=== PATIENT | female | born 1960 | race Caucasian/White ===

== ENCOUNTER 2016-11-23 17:06 | Emergency (ER) | payer MEDICARE ==
--- NOTE | ~2016-11-23 | CT71 ---
[facility] A Service [facility] RADIOLOGY TEXT RESULTS PATIENT: BILL ARELLANO LOCATION: SED : 64 UNIT #: [id number] AGE: [address]: LUISA EVANS SEX: F ORDER DR: [id number] [place] [id number] E MR#: [id number] Acc #: [id number] NAME: BILL ARELLANO : 1960 SEX: F STUDY DATE/TIME: 11/23/2016 16:48 UNIT: SED ROOM: STUDY DESCRIPTION: CT Head Wo Contrast Attending Physician: Luisa Evans Ordering Physician: Cherelle Servin Primary Care Physician: Primary Care Physician No MEDICAL IMAGING REPORT This report is preliminary unless electronic signature is present. EXAM Head CT without contrast HISTORY Migraine headache, onset earlier today. TECHNIQUE/COMPARISON Axial images were obtained without contrast and compared with 09/08/2015. This CT exam was performed with one or more of the following radiation dose reduction techniques: automatic exposure control, adjustment of mA and/or kV according to patient size, and iterative reconstruction. FINDINGS Ventricular size and configuration are normal. There is no evidence of acute infarct or hemorrhage. There are no extraaxial fluid collections. No mass lesion or mass effect is seen. There are no skull fractures. IMPRESSION Normal noncontrast head CT. Dictated by... Mickey Willis M.D. THIS IS AN ELECTRONICALLY VERIFIED REPORT Mickey Willis M.D. at 11/25/2016 11:02 AM RLF/to TD: 11/24/2016 11:20 JOB #: [id number] [facility] A Service [facility] RADIOLOGY TEXT RESULTS PATIENT: BILL ARELLANO LOCATION: SED : 64 UNIT #: [id number] AGE: [address]: LUISA EVANS SEX: F ORDER DR: MEDICAL IMAGING REPORT Page 1 of 1
--- NOTE | ~2016-11-23 | CT17 ---
[facility] A Service [facility] RADIOLOGY TEXT RESULTS PATIENT: BILL ARELLANO LOCATION: SED : 64 UNIT #: [id number] AGE: [address]: LUISA BARR SEX: F ORDER DR: [id number] [place] [id number] E MR#: [id number] Acc #: [id number] NAME: BILL ARELLANO : 1960 SEX: F STUDY DATE/TIME: 11/23/2016 17:52 UNIT: SED ROOM: STUDY DESCRIPTION: CT Angio Head Attending Physician: Luisa Barr Ordering Physician: Physician Non-Staff Primary Care Physician: Primary Care Physician No MEDICAL IMAGING REPORT This report is preliminary unless electronic signature is present. EXAM CT scan head and neck with contrast with carotid CT angiography HISTORY Headache over the past 16 hours. TECHNIQUE Thin section axial imaging was obtained from the mid mediastinum to the top of head with contrast. 100 mL of Isovue was used. CT angiography was performed with thick sliding MIPs, curved planar reformats and 3-D volumetric imaging with surface shaded and volume shaded display. This CT exam was performed with one or more of the following radiation dose reduction techniques: automatic exposure control, adjustment of mA and/or kV according to patient size, and iterative reconstruction. FINDINGS Extravascular structures are unremarkable. The CT angiographic images show moderate plaque at the great vessel origins without significant great vessel origin stenosis. In the posterior circulation both vertebral arteries are large and approximately the same size and the basilar artery is smooth and widely patent. In the carotid circulation there is mild calcified plaque in the right common carotid artery and at both carotid bifurcations. There is no significant stenosis by NASCET criteria on either side. There is minimal calcified plaque through the carotid siphons without stenosis. In the intracranial circulation there is no evidence of aneurysm, vascular malformation or major branch vessel occlusion. [facility] A Service of [facility] RADIOLOGY TEXT RESULTS PATIENT: BILL ARELLANO LOCATION: SED : 64 UNIT #: [id number] AGE: [address]: LUISA BARR SEX: F ORDER DR: IMPRESSION There is some mild calcified plaque at both carotid bifurcations without significant stenosis by NASCET criteria. There is moderate plaque at great vessel origins without significant great vessel origin stenosis. No acute findings. No evidence of aneurysm or occlusive disease intracranially. Dictated by... Mickey Willis M.D. THIS IS AN ELECTRONICALLY VERIFIED REPORT Mickey Willis M.D. at 11/25/2016 11:02 AM GARRY/feliciano TD: 11/24/2016 11:12 JOB #: [id number] MEDICAL IMAGING REPORT Page 1 of 1
--- NOTE | ~2016-11-23 | CT23 ---
[facility] A Service of [facility] RADIOLOGY TEXT RESULTS PATIENT: BILL ARELLANO LOCATION: SED : 64 UNIT #: [id number] AGE: [address]: LUISA BARR SEX: F ORDER DR: [id number] [place] [id number] E MR#: [id number] Acc #: [id number] NAME: BILL ARELLANO : 1960 SEX: F STUDY DATE/TIME: 11/24/2016 17:52 UNIT: SED ROOM: STUDY DESCRIPTION: CT Angio Neck Attending Physician: Luisa Barr Ordering Physician: Physician Non-Staff Primary Care Physician: Primary Care Physician No [facility] EXAM CTA Neck. FINDINGS Result text under order number [id number]. Please see this order for result text. Dictated byNavarik Name: [id number] Mikey Richter TD: 11/24/2016 11:19 JOB #: [id number] [facility] MEDICAL IMAGING REPORT
[~2016-11-23 17:06] MED LIST: ADVAIR 250-501 EACH IH; ALBUTEROL NEBULIZER INH; ALBUTEROL0.83 MG/ML IH; ALBUTEROL17 GM INH; AMBIEN CR PO; BENZONATATE PO; CELEXA PO; CERTAGEN PO; COMBIVENT U/D3 M1 NEB; COMBIVENT U/D3 M4 NEB; DOXYCYCLINE HY100 M1 PO; HYDROCODON-ACE1 EAC5 PO; KCL PO; KLONOPIN0.5 M2; LEVAQUIN PO; LORTAB 10-3251 EACH PO; MEDROL PO; MELATONIN10 M1 PO; NORVASC10 MG PO; PHENERGAN25 M1 PO; POTASSIUM99 M1 PO; PREDNISONE PO; PREDNISONE10 MG PO; PROAIR HFA8.5 GM INH; SOMA PO; SPIRIVA18 MCG; SYMBICORT INH; VICODIN 5/500 T1 TAB PO; VITAMIN B12-FO1 EACH PO; ZITHROMAX PO; ZITHROMAX500 MG PO; ZOFRAN PO
[2016-11-23 17:18] LABS: BASOPHIL# 0.1 X10e3 (0-0.3); BASOPHIL% 1.4 % (0-2.5); EOSINOPHIL# 0.2 X10e3 (0-0.7); EOSINOPHIL% 2.6 % (0.0-7.0); HEMATOCRIT 39.5 % (35.0-45.0); HEMOGLOBIN 12.8 gm/dL (12.0-16.0); LYMPHOCYTE# 1.8 X10e3 (1.0-3.5); LYMPHOCYTE% 22.6 % (17.0-45.0); MEAN CELL VOLUME 101.3 FL (83-96); MEAN CORPUSCULAR HEMOGLOBIN 32.7 PG (28-34); MEAN CORPUSCULAR HGB CONC 32.3 g/dL (30-36); MEAN PLATELET VOLUME 7.3 FL (6.5-11.5); MONOCYTE# 0.7 X10e3 (0-1.0); MONOCYTE% 9.2 % (3.0-12.0); NEUTROPHIL# 5.2 X10e3 (1.5-7.1); NEUTROPHIL% 64.2 % (40-75); PLATELET COUNT 518 X10e3 (140-420); RED CELL DISTRIBUTION WIDTH 16.6 % (11.0-15.5); WHITE BLOOD COUNT 8.1 X10e3 (4.0-10.5)
[2016-11-23 17:25] LABS: DIFF IND NO
[2016-11-23 17:37] LABS: ALKALINE PHOSPHATASE 87 U/L (32-92); ALT (SGPT) 13 U/L (10-40); AST (SGOT) 20 U/L (10-42); BILIRUBIN,TOTAL 0.4 mg/dL (0.2-2.0); BLOOD UREA NITROGEN 11 mg/dL (9-23); CALCIUM SERUM 9.2 mg/dL (8.4-10.2); CARBON DIOXIDE 33 mmol/L (22-31); CHLORIDE 93 mmol/L (100-111); CREATININE SERUM 0.5 mg/dL (0.6-1.4); GLOM FILT RATE Estimated ABOVE60 mL/min (>60); GLUCOSE FASTING 109 mg/dL (70-110); POTASSIUM 4.4 mmol/L (3.5-5.1); PROTEIN TOTAL SERUM 7.7 g/dL (6.0-8.3); SODIUM 131 mmol/L (135-145); URINE SOURCE CLEAN CATCH
[2016-11-23 17:40] LABS: URINE APPEARANCE CLEAR; URINE BILIRUBIN NEG (NEG); URINE BLOOD 1+ (NEG); URINE COLOR YELLOW; URINE GLUCOSE NEG (NORM); URINE KETONE NEG (NEG); URINE LEUKOCYTE ESTERASE NEG (NEG); URINE NITRATE NEG (NEG); URINE PROTEIN NEG (NEG); URINE UROBILINOGEN 0.2 MG/DL (NORM)
[2016-11-23 17:43] LABS: MICRO INDICATED? YES
[2016-11-23 17:45] LABS: CULTURE INDICATED? NO; URINE BACTERIA NEG (NEG); URINE WBC NEG /[HPF] (0-5)
== END 2016-11-23 19:08 | disposition left against medical advice (07) ==
LOC: SED 17:06
PROVIDERS: Physician Assistant
DX: R51 Headache (principal); R11.0 Nausea; F17.200 Nicotine dependence, unspecified, uncomplicated
CPT/HCPCS: 36415; 70450; 70496; 70498; 80053; 81003; 85025; 96361; 96374; 96375; 99284; J1200; J2765; Q9967